=== PATIENT | female | born 1950 | race Two or more races ===

== ENCOUNTER 2024-07-01 07:54 | Outpatient (OUT) | payer MEDICARE, SELFPAY ==
--- NOTE | 2024-07-01 08:40 | ECG_ITS ---
[facility] Test Date: 2024-07-01 Pat Name: ARLYN PALAFOX Department: Room: - Gender: Female [employer]ic: : [id number] Requested By: LA DARLING Order Number: [id number] Reading MD: HOLLIS RAY Measurements Intervals [place] Rate: 69 P: 71 OH: 170 QRS: -7 QRSD: 87 T: 78 QT: 387 QTc: 417 Interpretive Statements SINUS RHYTHM NONSPECIFIC T-WAVE ABNORMALITY ST/T wave changes, can't exclude anteroseptal ischemia No previous ECG available for comparison Electronically Signed On 07-01-2024 23:06:51 EDT by HOLLIS RAY
[2024-07-01 08:54] LABS: Basophils Absolute Auto 0.1 10^3/uL (0.0-0.1); Basophils Percent Auto 0.9 % (0.2-2.0); Eosinophils Absolute Auto 0.2 10^3/uL (0.0-0.7); Eosinophils Percent Auto 2.2 % (0.9-7.0); Hematocrit 37.3 % (36.0-48.0); Hemoglobin 12.1 g/dL (12.0-16.0); Immature Granulocytes Pct Auto 1.1 % (0.0-0.5); Lymphocytes Absolute Auto 3.3 10^3/uL (1.2-3.8); Lymphocytes Percent Auto 34.7 % (20.5-60.0); Mean Corpuscular HGB Conc 32.4 g/dL (29.9-35.2); Mean Corpuscular Hemoglobin 29.9 pg (26.7-34.0); Mean Corpuscular Volume 92.1 fL (81.0-99.0); Mean Platelet Volume 10.6 fL (9.5-13.5); Monocytes Absolute Auto 0.8 10^3/uL (0.3-0.8); Neutrophils Percent Auto 53.1 % (43.0-75.0); Platelet Count 326 10^3/uL (150-450); Red Blood Count 4.05 10^6/uL (4.20-5.40); Red Cell Distribution Width 13.2 % (11.0-15.0); White Blood Count 9.5 10^3/uL (4.0-11.0)
[2024-07-01 10:30] LABS: Anion Gap 15.9; Calcium 8.9 mg/dL (8.5-10.1); Carbon Dioxide 24.2 mmol/L (21.0-32.0); Chloride 102 mmol/L (98-107); Estimated GFR (African America >60 (>=60); Estimated GFR (Non-African Ame 54 (>=60); Glucose 94 mg/dL (74-106); Potassium 4.1 mmol/L (3.5-5.1); Sodium 138 mmol/L (136-145)
== END 2024-07-01 07:55 | disposition home or self-care (01) ==
LOC: PST 07:57
PROVIDERS: PCP Family Medicine; Visit Provider Obstetrics & Gynecology
DX: Z01.810 Encounter for preprocedural cardiovascular examination (principal); Z01.812 Encounter for preprocedural laboratory examination; R93.89 Abnormal findings on diagnostic imaging of other specified body structures; N95.0 Postmenopausal bleeding
CPT/HCPCS: 80048; 85025; 93005

== ENCOUNTER 2024-07-05 08:02 | Day surgery (SDC) | payer MEDICARE, SELFPAY ==
[2024-07-01 08:43] VITALS: BP 122/75; PULSE 73; TEMP 36.4; O2SAT 100; BMI 26.7
[2024-07-05 08:13] VITALS: BP 150/80; PULSE 82; TEMP 36; O2SAT 100; BMI 26.1
--- OUTSIDE RECORDS SUMMARY | 2024-07-05 08:18 | XMS_ITS | CCD ---
Author Organization [facility] Care Team Providers Care Psychiatric Nurse Practitioner Name Role Phone Truman Arias Admitting Unavailable Truman Arias Attending Unavailable Edita Aguilar Primary Care Unavailable Maryanne Hatchzabeth A Referring Unavailable Ediat Aguilar MD Primary Care Provider Edita Aguilar MD Unavailable SAMEERA, ARIELLE A Referring Unavailable EDITA AGUILAR Primary Care Unavailable SAMEERA, ARIELLE A Referring Unavailable LAUREN [facility] Care Unavailable EDITA AGUILAR Attending Unavailable PUMP, DENYS Attending Unavailable LAUREN, EDITA Kay Attending Unavailable SAMEERA, ARIELLE A Referring Unavailable SAMEERA, ARIELLE A Attending Unavailable SAMEERA, ARIELLE A Attending Unavailable SAMEERA, ARIELLE A Referring Unavailable SAMEERA, ARIELLE A Referring Unavailable SAMEERA, ARIELLE A Referring Unavailable TIFFANY PEREZ Attending Unavailable SAMEERA, ARIELLE A Attending Unavailable SAMEERA, ARIELLE A Referring Unavailable ROSIE LYLE Attending Unavailable TIFFANY PEREZ Attending Unavailable TIFFANY PEREZ Referring Unavailable TIFFANY PEREZ Referring Unavailable LA DARLING Attending Unavailable SAPPHIRE FLORES Referring Unavailable SAMEERA, ARIELLE A Attending Unavailable Allergies Allergy Classification Reported Allergen(s) Allergy Type Date of Onset Reaction(s) Facility (1 source) Allopurinol Drug Allergy 07-19-2023 Other [facility] Work Phone: Medications Current Medications Medication Drug Class(es) Dates Sig (Normalized) Sig (Original) amitriptyline hydrochloride 10 mg oral tablet (4 sources) Tricyclic Antidepressant Start: 04-27-2021 take 1 tablet by mouth at bedtime amitriptyline (Elavil) 10 MG tablet Take 10 mg by mouth at bedtime. 0 05/02/2023 Active Start: 04-27-2021 take 1 tablet by vee th once daily Amitriptyline Active 25 MG PO Daily April 27, 2021 12:00am in addition to 10mg tablet amLODIPine 5 mg oral tablet (1 source) Dihydropyridine Calcium Channel Vibha Start: 12-19-2023 End: 12-18-2024 take 1 tablet by mouth in the morning amLODIPine (Norvasc) 5 MG tablet Indications: Primary hypertension (CMS/HCC) Take 1 tablet (5 mg) by mouth in the morning. 30 tablet 11 12/19/2023 12/18/2024 Active aspirin 81 mg delayed release oral tablet (2 sources) Platelet Aggregation Inhibitor, Nonsteroidal Anti-inflammatory Drug Start: 04-27-2021 Aspirin Active 81 MG PO Q48H April 27, 2021 12:00am ASPIRIN 81 MG ch ewable tablet Chew 81 mg every other day. 0 Active atorvastatin 10 mg oral tablet (1 source) HMG-CoA Reductase Inhibitor Start: 04-27-2021 take 10 mg by mouth once daily Atorvastatin Active 10 MG PO Daily April 27, 2021 12:00am celecoxib 200 mg oral capsule (2 sources) Nonsteroidal Anti-inflammatory Drug Start: 05-09-2023 take 1 capsule by mouth every other day celecoxib (CeleBREX) 200 MG capsule Take 200 mg by mouth every other day. 0 05/09/2023 Active Start: 04-27-2021 take 1 capsule by mo uth once daily Celecoxib (Celebrex) 200 mg Capsule Active 200 MG PO Daily April 27, 2021 12:00am cholecalciferol 0.05 mg oral capsule (2 sources) Vitamin D Start: 04-27-2021 take 2 tablets by mouth once daily Cholecalciferol (Vitamin D3) (Vitamin D3) 50 mcg (2,000 unit) Capsule Active 50 MCG PO Daily April 27, 2021 12:00am 2 tabs daily cholecalciferol (Vitamin D-3) 50 MCG (2000 UT) tablet every 12 (twelve) hours. 0 Active cholestyramine resin 4000 mg powder for oral suspension (1 source) Bile Acid Sequestrant take 1 dose by mouth once daily cholestyramine (Questran) 4 g packet Take 1 packet by mouth 1 (one) time each day 0 Active chondroitin sulfates 400 mg / glucosamine sulfate 500 mg oral tablet (1 source) take 1 tablet by mouth once daily glucosamine-chondroitin 500-400 MG tablet Take 1 tablet by mouth 1 (one) time each day. 0 Active febuxostat 40 mg oral tablet (1 source) Xanthine Oxidase Inhibitor febuxostat (Uloric) 40 MG tablet 1 (one) time each day at the same time. 0 Active hydroCHLOROthiazide 25 mg oral tablet (1 source) Thiazide Diuretic Start: 2020 take 25 mg by mouth once daily Hydrochlorothiazide Active 25 MG PO Daily April 27, 2021 12:00am levothyroxine sodium 0.125 mg oral tablet (2 sources) l-Thyroxine Start: 2023 End: 2024 take 1 tablet by mouth before mealtime levothyroxine (Synthroid) 125 MCG tablet Indications: Postoperative hypothyroidism (CMS/HCC) Take 1 tablet (125 mcg) by mouth in the morning. Take before meals. 90 tablet 3 12/21/2023 12/20/2024 Active Start: 04-27-2021 take 125 ug by mouth once daily Levothyroxine Active 125 MCG PO Daily April 27, 2021 12:00am lisinopril 40 mg oral tablet (2 sources) Angiotensin Converting Enzyme Inhibitor Start: 10-25-2023 lisinopril 40 MG tablet Indications: Essential hypertension (CMS/HCC) TAKE 1 TABLET DAILY 90 tablet 3 10/25/2023 Active Start: 04-27-2021 take 40 mg by mouth once daily Lisinopril Active 40 MG PO Daily April 27, 2021 12:00am raloxifene hydrochloride 60 mg oral tablet (2 sources) Estrogen Agonist/Antagonist Start: 04-27-2021 take 1 tablet by mouth once daily Raloxifene (Evista) 60 mg Tablet Active 60 MG PO Daily April 27, 2021 12:00am Problems Active Problems Problem Classification Problem Date Documented Date Episodic/Chronic Chronic kidney disease (1 source) Chronic kidney disease stage 3A ; Translations: [Stage 3a chronic kidney disease (HCC)] Onset: 04-14-2021 09-08-2023 Chronic Complications of surgical procedures or medical care (1 source) Postoperative hypothyroidism; Translations: [Postprocedural hypothyroidism] Onset: 01-05-2016 09-08-2023 Chronic Disorders of lipid metabolism (1 source) Hyperlipidemia; Translations: [Hyperlipidemia, unspecified] Onset: 11-18-2016 09-08-2023 Chronic Diverticulosis and diverticulitis (2 sources) Diverticulosis of colon; Translations: [Diverticulosis of large intestine without perforation or abscess without bleeding] Onset: 01-05-2016 09-08-2023 Chronic Esophageal disorders (1 source) Gastroesophageal reflux disease; Translations: [Gastro-esophageal reflux disease without esophagitis] Onset: 01-05-2016 09-08-2023 Chronic Essential hypertension (1 source) Essential hypertension; Translations: [Essential (primary) hypertension] Onset: 01-05-2016 09-08-2023 Chronic Gout and other crystal arthropathies (1 source) Gout; Translations: [Gout, unspecified] Onset: 08-26-2021 09-08-2023 Chronic Noninfectious gastroenteritis (1 source) Lymphocytic colitis; Translations: [Other and unspecified noninfectious gastroenteritis and colitis] Onset: 10-24-2023 10-24-2023 Chronic Nutritional deficiencies (1 source) Vitamin D deficiency; Translations: [Vitamin D deficiency, unspecified] Onset: 08-26-2021 09-08-2023 Chronic Osteoarthritis (3 sources) Arthritis of left foot; Translations: [Primary osteoarthritis, left ankle and foot] Onset: 07-16-2015 09-08-2023 Chronic Other liver diseases (1 source) Steatosis of liver; Translations: [Fatty (change of) liver, not elsewhere classified] Onset: 11-19-2018 09-08-2023 Chronic Other nervous system disorders (1 source) Neuropathy; Translations: [Hereditary and idiopathic neuropathy, unspecified] Onset: 09-08-2023 09-08-2023 Chronic Other non-traumatic joint disorders (1 source) Bone spur of vertebra; Translations: [Osteophyte, vertebrae] Onset: 09-08-2023 09-08-2023 Chronic Other nutritional; endocrine; and metabolic disorders (1 source) Disorder of carbohydrate metabolism; Translations: [Other disorders of intestinal carbohydrate absorption] Onset: 09-08-2023 09-08-2023 Chronic Spondylosis; intervertebral disc disorders; other back problems (1 source) Sacroiliitis, not elsewhere classified; Translations: [Sacroiliitis, not elsewhere classified] Onset: 05-01-2024 Chronic Thyroid disorders (1 source) Hypothyroidism; Translations: [Hypothyroidism, unspecified] Onset: 01-05-2016 09-08-2023 Chronic Unclassified (1 source) Low back pain, unspecified; Translations: [Low back pain, unspecified] Onset: 05-01-2024 Past or Other Problems Problem Classification Problem Date Documented Da te Episodic/Chronic Abdominal hernia (1 source) Hiatal hernia; Translations: [Diaphragmatic hernia without obstruction or gangrene] Onset: 01-05-2016 09-08-2023 Episodic Diabetes mellitus without complication (1 source) Impaired fasting glycemia; Translations: [Impaired fasting glucose] Onset: 01-05-2016 09-08-2023 Episodic Hemorrhoids (1 source) Internal hemorrhoids; Translations: [Other hemorrhoids] Onset: 07-03-2019 09-08-2023 Episodic Mood disorders (1 source) Mood disorders Onset: 09-25-2023 09-25-2023 Other acquired deformities (1 source) Deformity of cervical vertebra; Translations: [Deforming dorsopathy, unspecified] Onset: 04-20-2021 09-08-2023 Episodic Other and unspecified benign neoplasm (1 source) Polyp of ascending colon; Translations: [Polyp of colon] Onset: 06-28-2019 09-08-2023 Episodic Other bone disease and musculoskeletal deformities (1 source) Osteopenia; Translations: [Other specified disorders of bone density and structure, unspecified site] Onset: 01-05-2016 09-08-2023 Episodic Other connective tissue disease (1 source) Fibromyalgia; Translations: [Fibromyalgia] Onset: 01-05-2016 09-08-2023 Episodic Other lower respiratory disease (1 source) Nodule of lung; Translations: [Solitary pulmonary nodule] Onset: 11-16-2018 09-08-2023 Episodic Other nutritional; endocrine; and metabolic disorders (1 source) Body mass index 25-29 - overweight; Translations: [Overweight] Onset: 09-08-2023 09-08-2023 Episodic Other screening for suspected conditions (not mental disorders or infectious disease) (4 sources) Protein level - finding; Translations: [Other specified abnormal findings of blood chemistry] Onset: 04-14-2021 04-29-2021 Episodic Residual codes; unclassified (1 source) Insomnia; Translations: [Insomnia, unspecified] Onset: 01-05-2016 09-08-2023 Episodic Spondylosis; intervertebral disc disorders; other back problems (2 sources) Stenosis of intervertebral foramina; Translations: [Spinal stenosis, site unspecified] Onset: 04-20-2021 09-08-2023 Episodic Results Test Name Value Interpretation Reference Range Facility MR SHOULDER RIGHT WO IV CONT Nicole 06-25-2024 MR SHOULDER RIGHT WO IV CONTRAST EXAMINATION: MR SHOULDER RIGHT WO IV CONTRAST HISTORY: Right shoulder pain. Lateral pain with limited range of motion. No recent injury. Denies prior right shoulder surgery. TECHNIQUE: Routine non-contrast MRI of the shoulder right COMPARISON: Radiographs 04/30/2024. RESULT: Limitations from motion. Rotator Cuff Tendons: Mild to moderate tendinosis involving supraspinatus, infraspinatus, and subscapularis, without distinct full-thickness tear within limits of motion. Teres minor appears intact. Long Head Biceps Tendon: Appears intact with appropriate location. Muscle: Muscle bulk and signal intensity are within normal limits. Labrum: Diffuse fraying/tearing. Bones and Marrow: No evidence of fracture or bone marrow replacing process. Glenohumeral Joint: Diffuse full-thickness chondral loss with bulky osteophytes, small to moderate joint effusion. Multiple joint bodies especially within the region of the subscapularis recess. Possible joint body in the biceps tendon sheath versus prominent osteophyte. Acromioclavicular Joint: Mild to moderate degenerative changes. Other: Mild subacromial-subdeltoid bursal thickening/fluid. IMPRESSION: Rotator cuff tendinosis, without evidence for full-thickness tear. Osteoarthritis, advanced involving the glenohumeral joint with multiple joint bodies. ELECTRONICALLY SIGNED BY: Maury Espinoza MD Normal Not Available US PELVIS TRANSVAGINALon US PELVIS TRANSVAGINAL Exam: US PELVIC AND ENDOVAGINAL Clinical History: Post menopausal bleeding Reference Exam: No comparison FINDINGS: Real-time ultrasonographic evaluation with color-flow Doppler imaging and Doppler spectral waveform analysis provided. The uterus is present. It measures 5.9 x 3.7 x 3.6 cm. The endometrium measures 1.7 cm. The ovaries are not identified. Myometrial echotexture is unremarkable. The pelvis contains no free fluid. IMPRESSION: Abnormal thickening of the endometrial echo complex. Neoplasia not excluded. Dictated on: 06/06/2024 12:12 PM This report has been electronically signed and approved by the interpreting Radiologist. Electronically Signed Mike Engle M.D. 2024-06-06 12:23:22 Normal Not Available US UPPER EXTREMITY NON-VASC RIGHTon 04-30-2024 US UPPER EXTREMITY NON-VASC RIGHT FINDINGS: No sonographic abnormality corresponds to the palpable lump. No aggressive mass or vascular structure. IMPRESSION: No sonographic abnormality. If a palpable lump is clinically present, sonographic findings can be consistent with a nonaggressive lipoma. TRANSCRIBED BY: ELECTRONICALLY SIGNED BY: Yuniel Ochoa MD Normal Not Available XR LUMBAR SPINE 4+ VIEWS WIT H FLEXION EXTENSIONon 04-30-2024 XR LUMBAR SPINE 4+ VIEWS WITH FLEXION EXTENSION FINDINGS: Minimal thoracolumbar scoliosis is present. Vertebral body heights are normal. Moderate to severe asymmetric disc space loss, greatest involvement L1-2, L5-S1. Sclerosis involves posterior elements of the mid and distal lumbar spine; however, no acute spondylolysis is seen. SI joints are normal. No acute fracture is identified. Soft tissues are relatively unremarkable. Flexion and extension: T12-L1: Normal alignment, no change L1-2: Several mm retrolisthesis, no change L2-3 - L3-4: Normal alignment, no change L4-5: Several mm anterolisthesis, no change L5-S1: Normal alignment, no change IMPRESSION: 1. Thoracolumbar, lumbosacral arthritis 2. Multilevel spondylolisthesis, no motion with flexion and extension TRANSCRIBED BY: ELECTRONICALLY SIGNED BY: Yuniel Ochoa MD Normal Not Available XR SHOULDER 2+ VIEWS RIGHTon 04-30-2024 XR SHOULDER 2+ VIEWS RIGHT FINDINGS: Increased acromiohumeral distance consistent with joint effusion. Moderate osteophyte formation involves the AC joint. No fracture or dislocation is seen. Mild glenohumeral joint space loss, moderate medial humeral head osteophyte formation. 1 cm upper lobe non-calcified nodule. IMPRESSION: 1. Right upper lobe non-calcified 1 cm nodule. Recommend chest CT 2. AC joint arthritis, no separation or fracture, probable joint effusion which may represent rotator cuff tendon pathology TRANSCRIBED BY: ELECTRONICALLY SIGNED BY: Yuniel Ochoa MD Normal Not Available CBC (INCLUDES DIFF/PLT)on Basophils (Bld) [#/Vol] 0.077 10*3/uL Normal 0-200 [facility] Comment on above: Performed By: #### 9 , 63, [id number] #### [facility] [place] [address] [employer] Social Worker: Zbigniew Jack MD Basophils/100 WBC (Bld) 0.9 % Normal [facility] Comment on above: Performed By: #### 9 , 63, [id number] #### [facility] [place] [address] [employer] Social Worker: Zbigniew Jack MD Eosinophils (Bld) [#/Vol] 0.206 10*3/uL Normal 15-500 [facility] Comment on above: Performed By: #### 9 , 6398, 20901 #### [facility] [place] [address] [employer] Social Worker: Zbigniew Jack MD Eosinophils/100 WBC (Bld) 2.4 % Normal [facility] Comment on above: Performed By: #### 9 , 6398, 05308 #### [facility] [place] [address] [employer] Social Worker: Zbigniew Jack MD Erythrocyte distribution width (RBC) [Ratio] 13.4 % Normal 11.0-15.0 [facility] Comment on above: Performed By: #### 07 18, 63, 05037 #### [facility] [place] [address] [employer] Social Worker: Zbigniew Jack MD Hematocrit (Bld) [Volume fraction] 38.7 % Normal 35.0-45.0 [facility] Comment on above: Performed By: #### 9 , 63, 21038 #### [facility] [place] [address] [employer] Social Worker: Zbigniew Jack MD Hemoglobin (Bld) [Mass/Vol] 12.6 g/dL Normal 11.7-15.5 [facility] Comment on above: Performed By: #### 9 , 63, 62814 #### [facility] [place] [address] [employer] Social Worker: Zbigniew Jack MD Lymphocytes (Bld) [#/Vol] 3.56 10*3/uL Normal 850-3900 [facility] Comment on above: Performed By: #### 9 , 63, 81918 #### [facility] [place] [address] [employer] Social Worker: Zbigniew Jack MD Lymphocytes/100 WBC (Bld) 41.4 % Normal [facility] Comment on above: Performed By: #### 9 , 63, 45677 #### [facility] [place] [address] [employer] Social Worker: Zbigniew Jack MD MCH (RBC) [Entitic mass] 30.1 pg Normal 27.0-33.0 [facility] Comment on above: Performed By: #### 9 , 63, 34024 #### [facility] [place] [address] [employer] Social Worker: Zbigniew Jack MD MCHC (RBC) [Mass/Vol] 32.6 g/dL Normal 32.0-36.0 [facility] Comment on above: Performed By: #### 9 , 63, 11026 #### [facility] [place] [address] [employer] Social Worker: Zbigniew Jack MD MCV (RBC) [Entitic vol] 92.4 fL Normal 80.0-100.0 [facility] Comment on above: Performed By: #### 9 , 63, 00758 #### [facility] [place] [address] [employer] Social Worker: Zbigniew Jack MD Monocytes (Bld) [#/Vol] 0.482 10*3/uL Normal 200-950 [facility] Comment on above: Performed By: #### 9 , 63, 96197 #### [facility] [place] [address] [employer] Social Worker: Zbigniew Jack MD Monocytes/100 WBC (Bld) 5.6 % Normal [facility] Comment on above: Performed By: #### 9 , 63, 20909 #### [facility] [place] [address] [employer] Social Worker: Zbigniew Jack MD Neutrophils (Bld) [#/Vol] 4.274 10*3/uL Normal 2198-6755 [facility] Comment on above: Performed By: #### 9 , 63, 65202 #### [facility] [place] [address] [employer] Social Worker: Zbigniew Jack MD Neutrophils/100 WBC (Bld) 49.7 % Normal [facility] Comment on above: Performed By: #### 9 , 63, 01142 #### [facility] [place] [address] [employer] Social Worker: Zbigniew Jack MD Platelet mean volume (Bld) [Entitic vol] 11.1 fL Normal 7.5-12.5 [facility] Comment on above: Performed By: #### 9 , 63, 96760 #### [facility] [place] [address] [employer] Social Worker: Zbigniew Jack MD Platelets (Bld) [#/Vol] 346 10*3/uL Normal 140-400 [facility] Comment on above: Performed By: #### 9 , 63, 70804 #### [facility] [place] [address] [employer] Social Worker: Zbigniew Jack MD RBC (Bld) [#/Vol] 4.19 10*6/uL Normal 3.80-5.10 [facility] Comment on above: Performed By: #### 9 , 63, 01713 #### [facility] [place] [address] [employer] Social Worker: Zbigniew Jack MD WBC (Bld) [#/Vol] 8.6 10*3/uL Normal 3.8-10.8 [facility] Comment on above: Performed By: #### 9 , 6399, 42268 #### [facility] [place] [address] [employer] Social Worker: Zbigniew Jack MD [facility] 03-14-2024 Albumin [Mass/Vol] 4.5 g/dL Normal 3.6-5.1 [facility] Comment on above: Performed By: #### 9 , 6399, 42819 #### [facility] [place] [address] [employer] Social Worker: Zbigniew Jack MD Albumin/Globulin [Mass ratio] 2.4 {ratio} Normal 1.0-2.5 [facility] Comment on above: Performed By: #### 9 , 63, 08851 #### [facility] [place] [address] [employer] Social Worker: Zbigniew Jack MD ALP [Catalytic activity/Vol] 59 U/L Normal 37-153 [facility] Comment on above: Performed By: #### 9 , 63, 64480 #### [facility] [place] [address] [employer] Social Worker: Zbigniew Jack MD ALT [Catalytic activity/Vol] 29 U/L Normal 6-29 [facility] Comment on above: Performed By: #### 9 , 63, 34964 #### [facility] [place] [address] [employer] Social Worker: Zbigniew Jack MD AST [Catalytic activity/Vol] 47 U/L High 10-35 [facility] Comment on above: Performed By: #### 9 , 63, 90237 #### [facility] [place] [address] [employer] Social Worker: Zbigniew Jack MD Bilirubin [Mass/Vol] 0.6 mg/dL Normal 0.2-1.2 [facility] Comment on above: Performed By: #### 9 , 63, 12123 #### [facility] [place] [address] [employer] Social Worker: Zbigniew Jack MD BUN/CREATININE RATIO SEE NOTE: Normal 6-22 [facility] Comment on above: Result Comment: Not Reported: BUN and Creatinine are within reference range. Performed By: #### 9 , 63, 92857 #### [facility] [place] [address] [employer] Social Worker: Zbigniew Jack MD Calcium [Mass/Vol] 9.2 mg/dL Normal 8.6-10.4 [facility] Comment on above: Performed By: #### 9 , 6398, 67598 #### [facility] [place] [address] [employer] Social Worker: Zbigniew Jack MD Chloride [Moles/Vol] 105 mmol/L Normal 98-110 [facility] Comment on above: Performed By: #### 07 18, 63, 14578 #### [facility] [place] [address] [employer] Social Worker: Zbigniew Jack MD CO2 [Moles/Vol] 23 mmol/L Normal 20-32 [facility] Comment on above: Performed By: #### 9 , 63, 73607 #### [facility] [place] [address] [employer] Social Worker: Zbigniew Jack MD Creatinine [Mass/Vol] 0.92 mg/dL Normal 0.60-1.00 [facility] Comment on above: Performed By: #### 9 , 63, 55898 #### [facility] [place] [address] [employer] Social Worker: Zbigniew Jack MD GFR/1.73 sq M.predicted among non-blacks MDRD (S/P/Bld) [Vol rate/Area] 65 mL/min/{1.73_m2} Normal > OR = 60 [facility] Comment on above: Performed By: #### 9 , 63, 32024 #### [facility] [place] [address] [employer] Social Worker: Zbigniew Jack MD Globulin (S) [Mass/Vol] 1.9 g/dL Normal 1.9-3.7 [facility] Comment on above: Performed By: #### 9 , 63, 97559 #### [facility] [place] [address] [employer] Social Worker: Zbigniew Jack MD Glucose [Mass/Vol] 102 mg/dL High 65-99 [facility] Comment on above: Result Comment: Fasting reference interval For someone without known diabetes, a glucose value between 100 and 125 mg/dL is consistent with prediabetes and should be confirmed with a follow-up test. Performed By: #### 9 , 63, 86659 #### [facility] [place] [address] [employer] Social Worker: Zbigniew Jack MD Potassium [Moles/Vol] 4.2 mmol/L Normal 3.5-5.3 [facility] Comment on above: Performed By: #### 9 , 6398, 22809 #### [facility] [place] [address] [employer] Social Worker: Zbigniew Jack MD Protein [Mass/Vol] 6.4 g/dL Normal 6.1-8.1 [facility] Comment on above: Performed By: #### 9 , 63, 63505 #### [facility] [place] [address] [employer] Social Worker: Zbigniew Jack MD Sodium [Moles/Vol] 141 mmol/L Normal 135-146 [facility] Comment on above: Performed By: #### 9 , 63, 08648 #### [facility] [place] [address] [employer] Social Worker: Zbigniew Jack MD Urea nitrogen [Mass/Vol] 23 mg/dL Normal 7-25 [facility] Comment on above: Performed By: #### 9 , 8017, 96007 #### [facility] [address] [place] [address] [employer] Social Worker: Zbigniew Jack MD URIC ACIDon 03-14-2024 Urate [Mass/Vol] 6.7 mg/dL Normal 2.5-7.0 [facility] Comment on above: Result Comment: Ther apeutic target for gout patients: <6.0 mg/dL Performed By: #### 9 , 2438, 42921 #### [facility] [address] [place] [address] [employer] Social Worker: Zbigniew Jack MD BI MAMMOGRAM SCREENING TOMOS YNTHESIS BILATERALon 10-12-2023 BI MAMMOGRAM SCREENING TOMOSYNTHESIS BILATERAL This is a summary report. The complete report is available in the patient's medical record. If you cannot access the medical record, please contact the sending organization for a detailed fax or copy. EXAMINATION: BI MAMMOGRAM SCREENING TOMOSYNTHESIS BILATERAL CLINICAL HISTORY: screening COMPARISON: September 28, 2021. RESULT: Digital mammography and 3D tomosynthesis of bilateral breasts was performed. The breasts are almost entirely fatty. Overall appearance is stable. Typically benign calcifications. There is no suspicious mass, asymmetry, architectural distortion, or calcification. IMPRESSION: BIRADS 2 - Benign Follow-up: Routine Screening Mamm . Board Certified Radiologists. Accredited by the ACR and FDA. MAMMOGRAPHY IS VERY IMPORTANT TO YOUR HEALTH. THE [employer] GUIDELINES RECOMMEND THAT WOMEN 40 YEARS OF AGE AND OLDER SHOULD HAVE A MAMMOGRAM EVERY YEAR. A REMINDER LETTER WILL BE SENT AT THE APPROPRIATE TIME. THIS FACILITY UTILIZES A REMINDER SYSTEM TO ENSURE ALL PATIENTS RECEIVE REMINDER NOTIFICATIONS AT THE APPROPRIATE TIME BASED ON THE RECOMMENDATIONS OF THIS EXAM. THIS INCLUDES REMINDERS FOR ROUTINE SCREENING MAMMOGRAMS, DIAGNOSTIC MAMMOGRAMS IN WHICH THE PATIENT IS ASKED TO RETURN FOR ADDITIONAL VIEWS, OR OTHER BREAST IMAGING INTERVENTIONS WHEN APPROPRIATE. THE PATIENT WILL BE PLACED IN THE APPROPRIATE REMINDER SYSTEM INCLUDING A REMINDER AT THE APPROPRIATE TIME FOR ANY PENDING ADDITIONAL VIEWS. TRANSCRIBED BY: ELECTRONICALLY SIGNED BY: Yuniel Ochoa MD Normal Not Available CBC (INCLUDES DIFF/PLT)on Basophils (Bld) [#/Vol] 0.08 10*3/uL Normal 0-200 [facility] Comment on above: Performed By: #### 9 , 63, 49103 #### [facility] of [address], [address] [place] [address] School Social Worker: Zbigniew Jack MD Basophils/100 WBC (Bld) 0.9 % Normal [facility] Comment on above: Performed By: #### 9 , 63, 94292 #### [facility] of [address], [address] [place] [address] School Social Worker: Zbigniew Jack MD Eosinophils (Bld) [#/Vol] 0.196 10*3/uL Normal 15-500 [facility] Comment on above: Performed By: #### 9 , 6398, 62947 #### [facility] of [place] [address] School Social Worker: Zbigniew Jack MD Eosinophils/100 WBC (Bld) 2.2 % Normal [facility] Comment on above: Performed By: #### 07 18, 6398, 38586 #### [facility] of [place] [address] School Social Worker: Zbigniew Jack MD Erythrocyte distribution width (RBC) [Ratio] 12.8 % Normal 11.0-15.0 [facility] Comment on above: Performed By: #### 9 , 63, 55430 #### [facility] of [place] [address] School Social Worker: Zbigniew Jack MD Hematocrit (Bld) [Volume fraction] 38.7 % Normal 35.0-45.0 [facility] Comment on above: Performed By: #### 9 , 63, 31625 #### [facility] of [place] [address] School Social Worker: Zbigniew Jack MD Hemoglobin (Bld) [Mass/Vol] 12.9 g/dL Normal 11.7-15.5 [facility] Comment on above: Performed By: #### 9 , 63, 00478 #### [facility] of [address], [address] [place], [place] [address] School Social Worker: Zbigniew Jack MD Lymphocytes (Bld) [#/Vol] 3.284 10*3/uL Normal 850-3900 [facility] Comment on above: Performed By: #### 9 , 63, 56810 #### [facility] of [place] [address] School Social Worker: Zbigniew Jack MD Lymphocytes/100 WBC (Bld) 36.9 % Normal [facility] Comment on above: Performed By: #### 9 , 63, 03351 #### [facility] of [place] [address] School Social Worker: Zbigniew Jack MD MCH (RBC) [Entitic mass] 29.9 pg Normal 27.0-33.0 [facility] Comment on above: Performed By: #### 9 , 63, 76513 #### [facility] of [place] [address] School Social Worker: Zbigniew Jack MD MCHC (RBC) [Mass/Vol] 33.3 g/dL Normal 32.0-36.0 [facility] Comment on above: Performed By: #### 9 , 63, 79198 #### [facility] of [place] [address] School Social Worker: Zbigniew Jack MD MCV (RBC) [Entitic vol] 89.8 fL Normal 80.0-100.0 [facility] Comment on above: Performed By: #### 9 , 63, 53658 #### [facility] of [place] [address] School Social Worker: Zbigniew Jack MD Monocytes (Bld) [#/Vol] 0.587 10*3/uL Normal 200-950 [facility] Comment on above: Performed By: #### 9 , 63, 42798 #### [facility] of [place] [address] School Social Worker: Zbigniew Jack MD Monocytes/100 WBC (Bld) 6.6 % Normal [facility] Comment on above: Performed By: #### 9 , 63, 79503 #### [facility] of [place] [address] School Social Worker: Zbigniew Jack MD Neutrophils (Bld) [#/Vol] 4.753 10*3/uL Normal 2987-0967 [facility] Comment on above: Performed By: #### 9 , 63, 02821 #### [facility] of [place] [address] School Social Worker: Zbigniew Jack MD Neutrophils/100 WBC (Bld) 53.4 % Normal [facility] Comment on above: Performed By: #### 9 , 63, 31058 #### [facility] of [place] [address] School Social Worker: Zbigniew Jack MD Platelet mean volume (Bld) [Entitic vol] 11.4 fL Normal 7.5-12.5 [facility] Comment on above: Performed By: #### 9 , 63, 83968 #### [facility] of [place] [address] School Social Worker: Zbigniew Jack MD Platelets (Bld) [#/Vol] 347 10*3/uL Normal 140-400 [facility] Comment on above: Performed By: #### 9 , 63, 28083 #### [facility] of [place] [address] School Social Worker: Zbigniew Jack MD RBC (Bld) [#/Vol] 4.31 10*6/uL Normal 3.80-5.10 [facility] Comment on above: Performed By: #### 9 , 63, 16856 #### [facility] of [place] [address] School Social Worker: Zbigniew Jack MD WBC (Bld) [#/Vol] 8.9 10*3/uL Normal 3.8-10.8 [facility] Comment on above: Performed By: #### 9 , 63, 88634 #### [facility] of [address], [address] [place] [address] School Social Worker: Zbigniew Jack MD [facility] 03-25-2023 Albumin [Mass/Vol] 4.6 g/dL Normal 3.6-5.1 [facility] Comment on above: Performed By: #### 9 , 63, 60243 #### [facility] of [address], [address] [place] [address] School Social Worker: Zbigniew Jack MD Albumin/Globulin [Mass ratio] 2.3 {ratio} Normal 1.0-2.5 [facility] Comment on above: Performed By: #### 9 , 63, 53476 #### [facility] of [place] [address] School Social Worker: Zbigniew Jack MD ALP [Catalytic activity/Vol] 65 U/L Normal 37-153 [facility] Comment on above: Performed By: #### 9 , 63, 68266 #### [facility] of [place] [address] School Social Worker: Zbigniew Jack MD ALT [Catalytic activity/Vol] 27 U/L Normal 6-29 [facility] Comment on above: Performed By: #### 9 , 63, 40358 #### [facility] of [place] [address] School Social Worker: Zbigniew Jack MD AST [Catalytic activity/Vol] 45 U/L High 10-35 [facility] Comment on above: Performed By: #### 9 , 63, 13374 #### [facility] of [place] [address] School Social Worker: Zbigniew Jack MD Bilirubin [Mass/Vol] 0.7 mg/dL Normal 0.2-1.2 [facility] Comment on above: Performed By: #### 9 , 63, 46874 #### [facility] of [place] [address] School Social Worker: Zbigniew Jack MD BUN/CREATININE RATIO NOT APPLICABLE Normal 6-22 [facility] Comment on above: Performed By: #### 9 , 6399, 78038 #### [facility] [place] [address] School Social Worker: Zbigniew Jack MD Calcium [Mass/Vol] 9.4 mg/dL Normal 8.6-10.4 [facility] Comment on above: Performed By: #### 9 , 63, 28684 #### [facility] [place] [address] School Social Worker: Zbigniew Jack MD Chloride [Moles/Vol] 101 mmol/L Normal 98-110 [facility] Comment on above: Performed By: #### 9 , 63, 96335 #### [facility] [place] [address] School Social Worker: Zbigniew Jack MD CO2 [Moles/Vol] 25 mmol/L Normal 20-32 [facility] Comment on above: Performed By: #### 9 , 63, 17915 #### [facility] [place] [address] School Social Worker: Zbigniew Jack MD Creatinine [Mass/Vol] 0.96 mg/dL Normal 0.60-1.00 [facility] Comment on above: Performed By: #### 9 , 63, 31992 #### [facility] of [place] [address] School Social Worker: Zbigniew Jack MD GFR/1.73 sq M.predicted among non-blacks MDRD (S/P/Bld) [Vol rate/Area] 62 mL/min/{1.73_m2} Normal > OR = 60 [facility] Comment on above: Result Comment: The eGFR is based on the CKD-EPI 2020 equation. To calculate the new eGFR from a previous Creatinine or Cystatin C result, go to https://www.kidney.org/professionals/ kdoqi/gfr%5Fcalculator Performed By: #### 9 , 63, 97760 #### [facility] of [place] [address] School Social Worker: Zbigniew Jack MD Globulin (S) [Mass/Vol] 2.0 g/dL Normal 1.9-3.7 [facility] Comment on above: Performed By: #### 9 , 63, 74217 #### [facility] of [place] [address] School Social Worker: Zbigniew Jack MD Glucose [Mass/Vol] 98 mg/dL Normal 65-99 [facility] Comment on above: Result Comment: Fasting reference interval Performed By: #### 9 , 63, 58246 #### [facility] [place] [address] School Social Worker: Zbigniew Jack MD Potassium [Moles/Vol] 4.3 mmol/L Normal 3.5-5.3 [facility] Comment on above: Performed By: #### 9 , 63, 94207 #### [facility] [place] [address] School Social Worker: Zbigniew Jack MD Protein [Mass/Vol] 6.6 g/dL Normal 6.1-8.1 [facility] Comment on above: Performed By: #### 9 , 63, 31241 #### [facility] of [place] [address] School Social Worker: Zbigniew Jack MD Sodium [Moles/Vol] 138 mmol/L Normal 135-146 [facility] Comment on above: Performed By: #### 9 , 63, 43700 #### [facility] of [place] [address] School Social Worker: Zbigniew Jack MD Urea nitrogen [Mass/Vol] 19 mg/dL Normal 7-25 [facility] Comment on above: Performed By: #### 9 , 63, 43969 #### [facility] of [place] [address] School Social Worker: Zbigniew Jack MD URIC ACIDon 03-25-2023 Urate [Mass/Vol] 5.8 mg/dL Normal 2.5-7.0 [facility] Comment on above: Result Comment: Ther apeutic target for gout patients: <6.0 mg/dL Performed By: #### 9 05, 6399, 17133 #### [facility] [place] [address] School Social Worker: Zbigniew Jack MD CBC (INCLUDES DIFF/PLT)on Basophils (Bld) [#/Vol] 0.074 10*3/uL Normal 0-200 [facility] Comment on above: Performed By: #### 9 , 12297, 6399 #### [facility] [place] [address] School Social Worker: Zbigniew Jack MD Basophils/100 WBC (Bld) 0.9 % Normal [facility] Comment on above: Performed By: #### 9 , 99064, 6399 #### [facility] [place] [address] School Social Worker: Zbigniew Jack MD Eosinophils (Bld) [#/Vol] 0.139 10*3/uL Normal 15-500 [facility] Comment on above: Performed By: #### 9 , 51607, 6399 #### [facility] [place] [address] School Social Worker: Zbigniew Jack MD Eosinophils/100 WBC (Bld) 1.7 % Normal [facility] Comment on above: Performed By: #### 9 , 58187, 6399 #### [facility] [place] [address] School Social Worker: Zbigniew Jack MD Erythrocyte distribution width (RBC) [Ratio] 13.0 % Normal 11.0-15.0 [facility] Comment on above: Performed By: #### 9 , 96303, 6399 #### [facility] of [place] [address] School Social Worker: Zbigniew Jack MD Hematocrit (Bld) [Volume fraction] 37.8 % Normal 35.0-45.0 [facility] Comment on above: Performed By: #### 9 , 65603, 6399 #### [facility] of [place] [address] School Social Worker: Zbigniew Jack MD Hemoglobin (Bld) [Mass/Vol] 12.5 g/dL Normal 11.7-15.5 [facility] Comment on above: Performed By: #### 9 , , 6399 #### [facility] of [place] [address] School Social Worker: Zbigniew Jack MD Lymphocytes (Bld) [#/Vol] 2.796 10*3/uL Normal 850-3900 [facility] Comment on above: Performed By: #### 9 , , 6399 #### [facility] of [place] [address] School Social Worker: Zbigniew Jack MD Lymphocytes/100 WBC (Bld) 34.1 % Normal [facility] Comment on above: Performed By: #### 9 , 06283, 6399 #### [facility] of [place] [address] School Social Worker: Zbigniew Jack MD MCH (RBC) [Entitic mass] 29.7 pg Normal 27.0-33.0 [facility] Comment on above: Performed By: #### 9 , 97759, 6399 #### [facility] of [place] [address] School Social Worker: Zbigniew Jack MD MCHC (RBC) [Mass/Vol] 33.1 g/dL Normal 32.0-36.0 [facility] Comment on above: Performed By: #### 9 , , 6399 #### [facility] of [place] [address] School Social Worker: Zbigniew Jack MD MCV (RBC) [Entitic vol] 89.8 fL Normal 80.0-100.0 [facility] Comment on above: Performed By: #### 9 , , 6399 #### [facility] of [place] [address] School Social Worker: Zbigniew Jack MD Monocytes (Bld) [#/Vol] 0.508 10*3/uL Normal 200-950 [facility] Comment on above: Performed By: #### 9 , , 99 #### [facility] of [place] [address] School Social Worker: Zbigniew Jack MD Monocytes/100 WBC (Bld) 6.2 % Normal [facility] Comment on above: Performed By: #### 9 , , 6398 #### [facility] of [place] [address] School Social Worker: Zbigniew Jack MD Neutrophils (Bld) [#/Vol] 4.682 10*3/uL Normal 7774-0024 [facility] Comment on above: Performed By: #### 9 , , 6399 #### [facility] of [place] [address] School Social Worker: Zbigniew Jack MD Neutrophils/100 WBC (Bld) 57.1 % Normal [facility] Comment on above: Performed By: #### 9 , , 6399 #### [facility] of [place] [address] School Social Worker: Zbigniew Jack MD Platelet mean volume (Bld) [Entitic vol] 11.7 fL Normal 7.5-12.5 [facility] Comment on above: Performed By: #### 9 , , 6399 #### [facility] of [place] [address] School Social Worker: Zbigniew Jack MD Platelets (Bld) [#/Vol] 340 10*3/uL Normal 140-400 [facility] Comment on above: Performed By: #### 9 , , 6399 #### [facility] of [place] [address] School Social Worker: Zbigniew Jack MD RBC (Bld) [#/Vol] 4.21 10*6/uL Normal 3.80-5.10 [facility] Comment on above: Performed By: #### 9 , , 6399 #### [facility] of [address], [address] [place] [address] School Social Worker: Zbigniew Jack MD WBC (Bld) [#/Vol] 8.2 10*3/uL Normal 3.8-10.8 [facility] Comment on above: Performed By: #### 9 , , 6399 #### [facility] of [place] [address] School Social Worker: Zbigniew Jack MD [facility] 09-30-2022 Albumin [Mass/Vol] 4.6 g/dL Normal 3.6-5.1 [facility] Comment on above: Performed By: #### 9 , 42526, 6399 #### [facility] of [place] [address] School Social Worker: Zbigniew Jack MD Albumin/Globulin [Mass ratio] 2.2 {ratio} Normal 1.0-2.5 [facility] Comment on above: Performed By: #### 9 , 29252, 6399 #### [facility] of [place] [address] School Social Worker: Zbigniew Jack MD ALP [Catalytic activity/Vol] 64 U/L Normal 37-153 [facility] Comment on above: Performed By: #### 9 , 25732, 6399 #### [facility] of [place] [address] School Social Worker: Zbigniew Jack MD ALT [Catalytic activity/Vol] 26 U/L Normal 6-29 [facility] Comment on above: Performed By: #### 9 , , 6399 #### [facility] of [address], [address] [place] [address] School Social Worker: Zbigniew Jack MD AST [Catalytic activity/Vol] 39 U/L High 10-35 [facility] Comment on above: Performed By: #### 9 , , 6399 #### [facility] of [address], [address] [place] [address] School Social Worker: Zbigniew Jack MD Bilirubin [Mass/Vol] 0.6 mg/dL Normal 0.2-1.2 [facility] Comment on above: Performed By: #### 9 , , 6399 #### [facility] of [place] [address] School Social Worker: Zbigniew Jack MD BUN/CREATININE RATIO NOT APPLICABLE Normal 6-22 [facility] Comment on above: Performed By: #### 9 , , 6399 #### [facility] of [place] [address] School Social Worker: Zbigniew Jack MD Calcium [Mass/Vol] 9.6 mg/dL Normal 8.6-10.4 [facility] Comment on above: Performed By: #### 9 , 85068, 6399 #### [facility] of [address], [address] [place] [address] School Social Worker: Zbigniew Jack MD Chloride [Moles/Vol] 105 mmol/L Normal 98-110 [facility] Comment on above: Performed By: #### 9 , 77327, 6399 #### [facility] of [address], [address] [place] [address] School Social Worker: Zbigniew Jack MD CO2 [Moles/Vol] 25 mmol/L Normal 20-32 [facility] Comment on above: Performed By: #### 9 , 49058, 6399 #### [facility] of [place] [address] School Social Worker: Zbigniew Jack MD Creatinine [Mass/Vol] 1.00 mg/dL Normal 0.60-1.00 [facility] Comment on above: Performed By: #### 9 , , 5491 #### [facility] [place] [address] School Social Worker: Zbigniew Jack MD GFR/1.73 sq M.predicted among non-blacks MDRD (S/P/Bld) [Vol rate/Area] 59 mL/min/{1.73_m2} Low > OR = 60 [facility] Comment on above: Result Comment: The eGFR is based on the CKD-EPI 2020 equation. To calculate the new eGFR from a previous Creatinine or Cystatin C result, go to https://www.kidney.org/professionals/ kdoqi/gfr%5Fcalculator Performed By: #### 9 , , 2657 #### [facility] [place] [address] School Social Worker: Zbigniew Jack MD Globulin (S) [Mass/Vol] 2.1 g/dL Normal 1.9-3.7 [facility] Comment on above: Performed By: #### 9 , 78256, 9499 #### [facility] [place] [address] School Social Worker: Zbigniew Jack MD Glucose [Mass/Vol] 94 mg/dL Normal 65-99 [facility] Comment on above: Result Comment: Fasting reference interval Performed By: #### 9 , 35541, 6099 #### [facility] [place] [address] School Social Worker: Zbigniew Jack MD Potassium [Moles/Vol] 4.3 mmol/L Normal 3.5-5.3 [facility] Comment on above: Performed By: #### 9 , 55220, 4300 #### [facility] [place] [address] School Social Worker: Zbigniew Jack MD Protein [Mass/Vol] 6.7 g/dL Normal 6.1-8.1 [facility] Comment on above: Performed By: #### 9 05, 12718, 6399 #### [facility] [address], [address] [place] [address] School Social Worker: Zbigniew Jack MD Sodium [Moles/Vol] 140 mmol/L Normal 135-146 [facility] Comment on above: Performed By: #### 9 05, 20680, 6399 #### [facility] [address], [address] [place] [address] School Social Worker: Zbigniew Jack MD Urea nitrogen [Mass/Vol] 22 mg/dL Normal 7-25 [facility] Comment on above: Performed By: #### 9 05, 03132, 6399 #### [facility] [address], [address] [place] [address] School Social Worker: Zbigniew Jack MD URIC ACIDon 09-30-2022 Urate [Mass/Vol] 5.3 mg/dL Normal 2.5-7.0 [facility] Comment on above: Result Comment: Ther apeutic target for gout patients: <6.0 mg/dL Performed By: #### 9 05, 89349, 6399 #### [facility] [place] [address] School Social Worker: Zbigniew Jack MD SCREENING MAMMOGRAM W/DINA, BILATERAL*on 09-29-2022 SCREENING MAMMOGRAM W/DINA, BILATERAL* COMPARISON: September 28, 2021, November 24, 2020, October 22, 2019, August 29, 2018] TECHNIQUE: 2D and 3D Tomosynthesis of the right and left breasts was performed. FINDINGS: Breast composition demonstrates almost entirely fat. Overall appearance is stable. Typically benign calcifications. No suspicious microcalcifications, asymmetry, architectural distortion, or associated features are present. IMPRESSION: BIRADS 2: Benign mammogram Board Certified Radiologist. Accredited by the ACR and FDA. MAMMOGRAPHY IS VERY IMPORTANT TO YOUR HEALTH. THE CURRENT [employer] GUIDELINES RECOMMENDS ANNUAL MAMMOGRAPHY BEGINNING AT AGE 40 THIS FACILITY USES A REMINDER SYSTEM TO ENSURE ALL PATIENTS RECEIVE REMINDER NOTIFICATIONS AT THE APPROPRIATE TIME BASED ON THE RECOMMENDATIONS OF THIS EXAM. Report reported and signed by Yuniel Ochoa on 09/29/2022 1212 Normal [facility] Sales Service Coordinator US Carotid, Bilateralon 11-1 US Carotid, Bilateral FINDINGS: Right (% stenosis)Left (% stenosis) ICA Peak Systolic Velocity (cm/sec)9986 ICA/CCA Systolic Ratio1.11.0 BILATERAL CAROTID SYSTEMS: Minimal soft and/or echogenic plaque throughout both carotid systems. No significant stenosis is present based on visual inspection or velocity and ratio values. Both vertebral arteries have normal cephalad-directed flow. Estimated range of stenosis*: Minimal, not hemodynamically significant *COMMENT: These estimates represent a median value within a 95% confidence interval range. They represent percent diameter ICA stenosis derived from regression curve analysis using the NASCET method and Doppler ultrasound velocities. Please note with high-grade stenosis (greater than 95%), an actual reduction in velocity will occur. Reference: Yuniel Rogers. carotid ultrasound, in RAD [facility], 39 (3), Mar, 2001. Report reported and signed by Yuniel Ochoa on 09/29/2022 1221 Normal [facility] Sales Service Coordinator CNOVon 11-15-2021 CNOV Office Visit (NENMMN ) ARLYN PALAFOX ([id number]) 1950 F Date Time Provider Department 11/15/21 2:30 PM [facility] your visit today, we recorded the following information about you: Pulse Respiration Blood pressure Weight 90/minute 16/minute 120/65 77.1 kg Height 1.676 m Krissy Caban MD 11/16/2021 8:11 AM Signed [facility] DATE: 11/15/2021 Reason for Evaluation: Consultation requested by Self for an opinion regarding her previous diagnosis of neuropathy. My final recommendations will be communicated back to the requesting physician by way of shared medical record or letter to requesting physician via US mail. HPI: Ms. 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 Previously evaluated here at [facility] in 03/2014 for concerns regarding peripheral neuropathy. Reported onset ~6 years prior (~2007). Numbness and tightness of the feet ascending to the ankles with ~2 years of stinging and burning pain worst at night. Exam at that time consistent with symmetric distal sensory polyneuropathy. Obtained multiple serum studies: SPEP with low lamin and elevated kappa/lambda ratio (3.12). Slightly elevated copper (170) and B6 (180). Normal/negative RF, UPEP, SMITHA, Vitamins B1/12. EMG in 03/2014 Overall unremarkable with exception being absent medial plantar response- read as normal study. QSART 05/2014 Reduced left proximal leg. Normal left forearm, distal leg, and foot. Skin biopsy 05/2014 Reduction in epidermal fiber densities at the distal thigh and distal leg consistent with a moderate to severe small fiber sensory neuropathy appearing length dependent. Management at that time was to increase her amitriptyline to 35 mg QHS. In the interim, she has been diagnosed with gout (at the end of 2018). In retrospect, realizes that she has had symptoms consistent with gout for several years preceding diagnosis. Has been on four different rounds of prednisone since September of 2021 due to gout attacks. With regards to her neuropathy: In 2013, symptoms were limited to essentially the mid and distal foot. Since that time, they have ascended to ~mid-calf bilaterally. Sometimes she feels tingling/pinpricks in the fingers of both hands- intermittent and usually at night. The pain in her feet has worsened. Described as hot /burning all the time with stabbing intermittently. Numbness has worsened, though she is not able to describe exactly how. Has not completely lost feeling- if anything they are frequently more sensitive. Her feet in general feel that they are stiff , and like they are hard to move to an extent. Recently had multiple labs (08/2021) drawn. A1c 6.2 Free T4 2.05, TSH 2.370 Vitamin D 66 She has noticed that her activity is decreasing (I.e. walking the neighborhood) as she knows she will pay for it later that night. Current medications being tried for the patient's symptoms include: - Amitriptyline 35 mg QHS Neurologic ROS Muscle bulk loss? No Muscle pain? No Cramps/Twitching? A lot of cramps in her legs at night. Suggestion of myotonia/difficulty relaxing after contraction? No Fatigable weakness? No Does strength improve after brief exercise? Yes Able to brush hair/teeth without difficulty? No Able to button shirts/use zips? No Clumsiness/dropping grasped objects? No Can you arise from squatted position easily? No, needs something to use as an aid. Able to get out of chair without using arms? Yes Able to walk up steps easily? Yes Use an assistive device to walk? No Significant imbalance with walking? Yes, generally feels off balance. Needs to lean against the pew in front of her if she closes her eyes praying at [employer]. Falls? None Any change in urine color, especially after exertion/physical activity? No The patient denies symptoms suggestive of oculobulbar weakness including diplopia, dysphagia, poor saliva control, dysarthria/dysphonia, impaired mastication, facial weakness/droop. There are no neuromuscular respiratory weakness symptoms, particularly orthopnea>dyspnea. Pseudobulbar affect is absent. The patient does not report symptoms referable to autonomic dysfunction including impaired sweating, excessive mucosal dryness, gastroparetic early satiety, postprandial abdominal bloating, constipation, bowel or bladder dyscontrol, or syncope/presyncope/orth ostatic (more content not included)... Normal [facility] Methylmalonic Acidon 022 Methylmalonic Acid 247 nmol/L Normal 79-376 [facility] Comment on above: Result Comment: This test was developed and its performance characteristics determined by [facility]'s Pawel Hernandez [facility] [place] ([facility]). It has not been cleared or approved by the FDA. [facility] is regulated under CLIA as qualified to perform high complexity testing. This test is used for clinical purposes. It should not be regarded as investigational or for research. Performed By: #### M BOSTON NICOLE, Pari #### [place] [address] [place] [address] Monclnl Protein, Seron 11-15 K/L Ratio, Serum 1.51 Normal 0.26-1.65 [facility] Comment on above: Performed By: #### BOSTON Dumont MA B12 #### [place] [address] Peggs, Free, Serum 11.0 mg/L Normal 3.30-19.40 [facility] Comment on above: Result Comment: Test performed by an immunoturbidimetric assay on Optilite instrument from [facility]. Immunoglobulin free light chain assay results should be interpreted in conjunction with other tests and in correlation with clinical picture. Performed By: #### BOSTON Dumont MA B12 #### [place] [address] Lambda, Free, Serum 7.3 mg/L Normal 5.7-26.3 [facility] Comment on above: Result Comment: Test performed by an immunoturbidimetric assay on Optilite instrument from [facility]. Immunoglobulin free light chain assay results should be interpreted in conjunction with other tests and in correlation with clinical picture. Performed By: #### BOSTON Dumont MA B12 #### [place] [address] [place] [address] MPA Result No M protein is identified. Normal No M protein is identified. [facility] Comment on above: Performed By: #### BOSTON Dumont MA B12 #### [place] [address] [place] [address] MPA Serum IgA 112 mg/dL Normal 70-[address] [facility] Comment on above: Performed By: #### BOSTON Dumont MA B12 #### [place] [address] [place] [address] MPA Serum IgG 517 mg/dL Low 700-[address] [facility] Comment on above: Performed By: #### BOSTON Dumont MA B12 #### [facility] [employer] [address] [place] [address] MPA Serum IgM 36 mg/dL Low 40-[address] [facility] Comment on above: Performed By: #### BOSTON Dumont MA, B12 #### [facility] [address] [place] [address] Staff Review Reviewed by Rachael Hidalgo MD ([id number]) Normal [facility] Comment on above: Performed By: #### BOSTON Dumont MA, B12 #### [facility] [address] [place] [address] Vitamin B12on 11-15-2021 Cobalamin (Vitamin B12) [Mass/Vol] 503 pg/mL Normal 232-[address] [facility] Comment on above: Performed By: #### BOSTON Dumont MA B12 #### [place] [address] [place] [address] FT4on 04-01-2019 T4 free mass conc 1.64 ng/dL Normal 0.78-2.44 [facility] Comment on above: Performed By: #### 4 500, 4520 #### [facility] Unless Otherwise Noted [address] [place] [address] / [facility] #4724/CLIA # [id number] TSHon 04-01-2019 Thyrotropin Qn 0.54 uIU/ml Normal 0.47-4.68 [facility] Comment on above: Performed By: #### 4 500, 4520 #### [facility] Unless Otherwise Noted [address] [address] / [facility] #4724/CLIA # [id number] Encounters Encounter Date Encounter Type Care Provider Facility Start: 06-26-2024 End: 06-26-2024 ambulatory LA LISSET Not Available Start: 06-25-2024 End: 06-25-2024 ambulatory TIFFANY PEREZ Not Available Start: 06-19-2024 End: 06-19-2024 ambulatory TFIFANY PEREZ Not Available Start: 06-18-2024 End: 06-18-2024 ambulatory ROSIE LYLE Not Available Start: 06-05-2024 End: 06-05-2024 ambulatory ARIELLE A SAMEERA Not Available Start: 06-05-2024 End: 06-05-2024 ambulatory ARIELLE A SAMEERA Not Available Start: 05-15-2024 End: 06-13-2024 ambulatory ARIELLE A SAMEERA [facility] Start: 05-08-2024 End: 05-08-2024 ambulatory TIFFANY PEREZ Not Available Start: 05-08-2024 End: 05-08-2024 ambulatory ARIELLE A SAMEEAR Not Available Start: 05-02-2024 End: 05-02-2024 ambulatory ARIELLE A SAMEERA Not Available Start: 05-01-2024 End: 05-13-2024 ambulatory ARIELLE A SAMEERA [facility] Start: 04-30-2024 End: 04-30-2024 ambulatory ARIELLE A SAMEERA Not Available Start: 04-30-2024 End: 04-30-2024 ambulatory ARIELLE A SAMEERA Not Available Start: 03-20-2024 End: 03-20-2024 ambulatory EDITA B WONDERLY Not Available Start: 01-11-2024 End: 01-11-2024 ambulatory DENYS PUMP Not Available Start: 12-28-2023 Telephone encounter Edita mari MD Work Phone: [facility] Start: 12-19-2023 End: 12-19-2023 ambulatory EDITA B WONDERLY Not Available Start: 10-24-2023 End: 10-24-2023 ambulatory ARIELLE A SAMEERA Not Available Start: 10-12-2023 End: 10-12-2023 ambulatory ARIELLE A SAMEERA Not Available Start: 09-25-2023 End: 09-25-2023 ambulatory ARIELLE A SAMEERA Not Available Start: 04-29-2021 End: 04-30-2021 ambulatory Truman Fanning Facility:[facility] Procedures Date Procedure Procedure Detail Performing Clinician Start: 10-12-2023 Mammography Edita pineda MD Work Phone: Start: 09-18-2023 Colonoscopy Edita pineda MD Work Phone: Plan of Treatment Date Care Activity Detail Author Start: 09-18-2033 Screening for malign ant neoplasm of colon [facility] Healthcare Start: 10-12-2024 Screening for malign ant neoplasm of breast Mammogram [facility] Start: 09-27-2024 End: 09-27-2024 Patient encounter procedure 09/27/2024 9:30 AM EST Office Visit [facility] [address] [place] [facility] [phone] Arielle Hatch NP [address] [place] [facility] [address] [facility] Start: 09-25-2024 Medicare Annual Well ness (AWV) Medicare Annual Wellness (AWV) [facility] Start: 03-20-2024 End: 03-20-2024 Patient encounter procedure 03/20/2024 10:30 AM EDT Office Visit [facility] [address] [place] [phone] Edita Aguilar MD [address] [place] [address] [facility] Start: 1950 Screening for malign ant neoplasm of colon [facility] Immunizations Immunization Date Immunization Notes Care Provider Fa cili 12-02-2023 RSV, recombinant, pr otein subunit RSVpreF, adjuvant reconstitu, 120mcg/0.5mL, PF (Arexvy) Edita Aguilar MD Work Phone: [facility] 08-23-2023 Influenza, High-dose Seasonal, Quadrivalent, Preservative Free Edita Aguilar MD Work Phone: [facility] 08-23-2023 SARS-COV-2 (COVID-19 ) vaccine, mRNA, spike protein, LNP, PF, 50 mcg/0.5 mL Edita Aguilar MD Work Phone: [facility] 08-15-2022 Influenza, High-dose Seasonal, Quadrivalent, Preservative Free Edita Aguilar MD Work Phone: [facility] 08-18-2021 Influenza, High-dose Seasonal, Quadrivalent, Preservative Free Edita Aguilar MD Work Phone: [facility] 10-03-2020 zoster vaccine recombinant Tim Aguilar MD Work Phone: [facility] 07-22-2020 Influenza, High-dose Seasonal, Quadrivalent, Preservative Free Edita Aguilar MD Work Phone: [facility] 07-22-2020 tetanus toxoid, redu miguel diphtheria toxoid, and acellular pertussis vaccine, adsorbed Edita Aguilar MD Work Phone: [facility] 07-22-2020 zoster vaccine recombinant Tim Aguilar MD Work Phone: [facility] 08-21-2019 influenza, high dose seasonal, preservative-free Edita Aguilar MD Work Phone: [facility] 09-08-2018 Influenza, injectabl e, Madin Sharmaine Canine Kidney, preservative free, quadrivalent Edita Aguilar MD Work Phone: [facility] 08-13-2018 influenza, high dose seasonal, preservative-free Edita Aguilar MD Work Phone: [facility] 09-13-2017 influenza, injectabl e, quadrivalent, preservative free Edita Aguilar MD Work Phone: [facility] 09-05-2016 influenza, high dose seasonal, preservative-free Edita Aguilar MD Work Phone: [facility] 01-06-2016 pneumococcal conjuga te vaccine, 13 valent Edita Aguilar MD Work Phone: [facility] 09-09-2015 influenza, high dose seasonal, preservative-free Edita Aguilar MD Work Phone: [facility] 03-12-2014 pneumococcal polysaccharide vaccine, 23 valent Edita Aguilar MD Work Phone: [facility] 10-13-2012 influenza, injectabl e, quadrivalent, preservative free Edita Aguilar MD Work Phone: [facility] 10-29-2009 novel influenza-H1N1 -09, preservative-free, injectable Edita Aguilar MD Work Phone: [facility] 05-19-2009 zoster vaccine, live Edita jones MD Work Phone: [facility] 01-02-2009 tetanus toxoid, redu miguel diphtheria toxoid, and acellular pertussis vaccine, adsorbed Edita Aguilar MD Work Phone: [facility] Payers Date Payer Category Payer Medicare AETNA MEDICARE A DVANTAGE AETNA MEDICARE REPLACEMENT [id number] 2022-Present [address] [place] [address] [id number] 2021 Private Health Insurance [id number] 2021 Self-pay [id number] 2014 Medicare [id number] 1950 Unknown [id number]. 128 1950 Unknown [id number] 2.840.1.833855.3.579.2. 128 1949 Unknown [id number] 2.840.1.830784.3.579.2. 1258 1949 Unknown [id number] 2.16840.1.490507.3.579.2. 1259 1949 Unknown [id number] 2.16840.1.040634.3.579.2. 125 1949 Unknown [id number] 2.16.840.1.506119.3.579.2. 1258 1949 Unknown [id number] 2.16.840.1.232166.3.579.2. 1258 1949 Unknown [id number] 2.16.840.1.043747.3.579.2. 1258 1949 Unknown [id number] 2.16.840.1.904590.3.579.2. 1258 1949 Unknown [id number] 2.16.840.1.579922.3.579.2. 1258 1949 Unknown [id number] 2.16.840.1.846081.3.579.2. 1258 1949 Unknown [id number] 2.16.840.1.614771.3.579.2. 1258 1949 Unknown [id number] 2.16.840.1.396013.3.579.2. 1258 1949 Unknown [id number] 2.16.840.1.232288.3.579.2. 1258 1949 Unknown [id number] 2.16.840.1.747797.3.579.2. 1258 1949 Unknown [id number] 2.16.840.1.791488.3.579.2. 1258 1949 Unknown [id number] 2.16.840.1.529933.3.579.2. 1258 1949 Unknown [id number] 2.16.840.1.117768.3.579.2. 1258 1949 Unknown [id number] 2.16.840.1.670950.3.579.2. 1258 1949 Unknown [id number] 2.16.840.1.597932.3.579.2. 1258 1949 Unknown [id number] 2.16.840.1.597447.3.579.2. 1258 Unknown [id number] 2.16.840.1.254016.3.579.2. 531 Social History Date Type Detail Facility Tobacco smoking stat us [facility] Unknown if ever smoked [facility] Work Phone: Start: 1950 Sex Assigned At Female [facility] Start: 07-19-2023 Tobacco smoking status NHIS Ex-smoker [facility] Start: 07-22-1967 End: 09-25-1993 History of tobacco use Current smoker [facility] Start: 07-22-1967 End: 09-25-1993 History of tobacco use Cigarette Smoker [facility] Start: 07-19-2023 End: 09-24-2023 Cigarettes smoked current (pack per day) - Reported 0.5 [facility] History of tobacco use Passive smoker [facility] Start: 07-19-2023 Tobacco use and exposure Smokeless tobacco non-user [facility] Start: 10-24-2023 Alcohol intake Current drinker of alcohol (finding) [facility] Start: 09-24-2023 End: 09-25-2023 Humiliation, Afraid, Rape, and Kick questionnaire [HARK] [facility] Within the last year , have you been afraid of your partner or ex-partner? No [facility] Do you belong to any clubs or organizations such as zoroastrianism groups, unions, fraternal or athletic groups, or school groups? Yes [facility] Are you now , , , , never or living with a partner? [facility] How often to you hav e a drink containing alcohol? 2-4 times a month [facility] How many standard dr inks containing alcohol do you have on a typical day? 1 or 2 [facility] How often do you hav e 6 or more drinks on 1 occasion? Never [facility] How hard is it for y ou to pay for the very basics like food, housing, medical care, and heating Not hard at all [facility] Do you feel stress - tense, restless, nervous, or anxious, or unable to sleep at night because your mind is troubled all the time - these days [OSQ] Not at all [facility] (I/We) worried wheaide er (my/our) food would run out before (I/we) got money to buy more. Never true [facility] Start: 07-19-2023 Alcohol Comment Alcohol: 1 or 2 drinks on a typical day / 2 to 4 times a month. Caffeine: 3-4 cups/day [facility] Start: 1950 Sex Assigned At Not on file [facility] Start: 01-25-2023 Gender identity Identifies as female gender (finding) [facility] Clinical Note 05-08-2024 Note Date & Type Note Facility 05-08-2024 Note PROCEDURE: Without IV contrast, axial helical 5 mm slice thickness images of the chest performed. FINDINGS: Comparison June 18, 2020 Stable right upper lobe partially calcified 8 mm nodule. No suspicious nodule, mass or consolidation. No significant midsternal or hilar lymphadenopathy. No pleural or pericardial effusion. Unremarkable upper abdominal images. IMPRESSION: Stable right upper lobe partially calcified 8 mm lung nodule/granuloma. TRANSCRIBED BY: ELECTRONICALLY SIGNED BY: Yuniel Ochoa MD Not Available Telephone encounter Note 12-28-2023 Telephone Encounter - Lupe Aguilar - 12/28/2023 10:07 AM EST Note Date & Type Note Facility 12-28-2023 Telephone encount er Note Patient left a voicemail and I called her back - she started on a new b/p medication- amlodipine on the . Last night her feet were swollen, this morning she noticed her hands and face are puffy. Her b/p last nite was 169/73 p.93 this morning 163/78. Please advise pt. [phone]. Please call her cell phone if it is after 11AM [phone]. Thank you. [facility] Note 12-28-2023 Telephone Encounter - Lupe Aguilar - 12/28/2023 10:07 AM EST Note Date & Type Note Facility 12-28-2023 Miscellaneous Notes Formattin g of this note might be different from the original. Patient left a voicemail and I called her back - she started on a new b/p medication- amlodipine on the . Last night her feet were swollen, this morning she noticed her hands and face are puffy. Her b/p last nite was 169/73 p.93 this morning 163/78. Please advise pt. [phone]. Please call her cell phone if it is after 11AM [phone]. Thank you. documented in this encounter [facility] Progress note 11-15-2021 Note Date & Type Note Facility 11-15-2021 Note HNO ID: [id number] Author: Krissy Caban MD Service: ? Author Type: Physician Type: Progress Notes Filed: 11/16/2021 8:11 AM Note Text: [facility] DATE: 11/15/2021 Reason for Evaluation: Consultation requested by Self for an opinion regarding her previous diagnosis of neuropathy. My final recommendations will be communicated back to the requesting physician by way of shared medical record or letter to requesting physician via US mail. HPI: Ms. 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 Previously evaluated here at [facility] in 03/2014 for concerns regarding peripheral neuropathy. Reported onset ~6 years prior (~2007). Numbness and tightness of the feet ascending to the ankles with ~2 years of stinging and burning pain worst at night. Exam at that time consistent with symmetric distal sensory polyneuropathy. Obtained multiple serum studies: SPEP with low lamin and elevated kappa/lambda ratio (3.12). Slightly elevated copper (170) and B6 (180). Normal/negative RF, UPEP, SMITHA, Vitamins B1/12. EMG in 03/2014 Overall unremarkable with exception being absent medial plantar response- read as normal study. QSART 05/2014 Reduced left proximal leg. Normal left forearm, distal leg, and foot. Skin biopsy 05/2014 Reduction in epidermal fiber densities at the distal thigh and distal leg consistent with a moderate to severe small fiber sensory neuropathy appearing length dependent. Management at that time was to increase her amitriptyline to 35 mg QHS. In the interim, she has been diagnosed with gout (at the end of 2018). In retrospect, realizes that she has had symptoms consistent with gout for several years preceding diagnosis. Has been on four different rounds of prednisone since September of 2021 due to gout attacks. With regards to her neuropathy: In 2013, symptoms were limited to essentially the mid and distal foot. Since that time, they have ascended to ~mid-calf bilaterally. Sometimes she feels tingling/pinpricks in the fingers of both hands- intermittent and usually at night. The pain in her feet has worsened. Described as hot /burning all the time with stabbing intermittently. Numbness has worsened, though she is not able to describe exactly how. Has not completely lost feeling- if anything they are frequently more sensitive. Her feet in general feel that they are stiff , and like they are hard to move to an extent. Recently had multiple labs (08/2021) drawn. A1c 6.2 Free T4 2.05, TSH 2.370 Vitamin D 66 She has noticed that her activity is decreasing (I.e. walking the neighborhood) as she knows she will pay for it later that night. Current medications being tried for the patient's symptoms include: - Amitriptyline 35 mg QHS Neurologic ROS Muscle bulk loss? No Muscle pain? No Cramps/Twitching? A lot of cramps in her legs at night. Suggestion of myotonia/difficulty relaxing after contraction? No Fatigable weakness? No Does strength improve after brief exercise? Yes Able to brush hair/teeth without difficulty? No Able to button shirts/use zips? No Clumsiness/dropping grasped objects? No Can you arise from squatted position easily? No, needs something to use as an aid. Able to get out of chair without using arms? Yes Able to walk up steps easily? Yes Use an assistive device to walk? No Significant imbalance with walking? Yes, generally feels off balance. Needs to lean against the pew in front of her if she closes her eyes praying at zoroastrianism. Falls? None Any change in urine color, especially after exertion/physical activity? No The patient denies symptoms suggestive of oculobulbar weakness including diplopia, dysphagia, poor saliva control, dysarthria/dysphonia, impaired mastication, facial weakness/droop. There are no neuromuscular respiratory weakness symptoms, particularly orthopnea>dyspnea. Pseudobulbar affect is absent. The patient does not report symptoms referable to autonomic dysfunction including impaired sweating, excessive mucosal dryness, gastroparetic early satiety, postprandial abdominal bloating, constipation, bowel or bladder dyscontrol, or syncope/presyncope/orthostatic intolerance. The patient has not noticed any recent skin rashes nor does she report any constitutional symptoms like fever, night sweats, anorexia or unintentional weight loss. Previous Evaluation Previous labs, electrodiagnostics, and neuroimaging are summarized below: See HP (more content not included)... [facility] Evaluation note Note Date & Type Note Facility Evaluation note [facility] Summary Purpose Family History No Family History Records Found Relationship Condition Age at Onset Recorded Date/T paula father Cerebrovascular accident (CVA) Unknown Heart disease Unknown Not Specified Malignant neoplasm of lung Unknown sister Malignant neoplasm of breast Unknown grandparent Malignant neoplasm of breast Unknown family member Mantle cell lymphoma Unknown Advance Directives No Advanced Directives Records FoundDocuments on File Type Date Recorded Patient Product Distribution Specialist Expl anation Advance Directives and Living Will 06/13/2019 2007-07-30 Miguelito trinidad Additional Source Comments INFORMATION SOURCE (unrecogn ized section and content) DATE CREATED AUTHOR 04/09/2019 [facility] DATE CREATED AUTHOR AUTHOR'S ORGANIZ ATION 02/03/[address] [facility] DATE CREATED AUTHOR AUTHOR'S ORGANIZ ATION 09/30/2022 [facility] dical Specialist DATE CREATED AUTHOR AUTHOR'S ORGANIZ ATION 03/26/2023 [facility] DATE CREATED AUTHOR AUTHOR'S ORGANIZ ATION 07/15/2023 [facility] DATE CREATED AUTHOR AUTHOR'S ORGANIZ ATION 03/15/2024 [facility] DATE CREATED AUTHOR AUTHOR'S ORGANIZ ATION 06/15/2024 [facility] DATE CREATED AUTHOR AUTHOR'S ORGANIZ ATION 06/30/2024 [facility] dical Specialists EPIC Goals (unrecognized section and content) Goals may be documented in a n alternate section Care Teams (unrecognized sec tion and content) Psychiatric Nurse Practitioner Relationship Specialty Start Date End Date Ayoly, Edita Kay MD [address] [place] [address] PCP - General Family Medicine 03/21/23 Edita Aguilar MD [address] [place] [address] PCP - [facility] 05/13/23 FOR RECORDS PERTAINING TO PATIENTS WHO ARE OR HAVE BEEN ENROLLED IN A CHEMICAL DEPENDENCY/SUBSTANCEABUSE PROGRAM, SOME INFORMATION MAY BE OMITTED. This clinical summary was aggregated from multiple sources. Caution should be exercised in using it in the provision of clinical care. This summary normalizes information from multiple sources, and as a consequence, information in this document may materially change the coding, format and clinical context of patient data. In addition, data may be omitted in some cases. CLINICAL DECISIONS SHOULD BE BASED ON THE PRIMARY CLINICAL RECORDS. [facility] [employer] [facility]. provides no warranty or guarantee of the accuracy or completeness of information in this document.
[2024-07-05] MEDS: LACTATED RINGER'S SOLUTION 1,000 ML 50 ML IV (08:31)
--- NOTE | 2024-07-05 10:21 | PM.ONB ---
Brief Operative Note Date of procedure: 07/05/24 Pre-op diagnosis general: thickend endometrium Post-op diagnosis: same as pre-op Procedure: NAME OF PROCEDURE: [ D&c hysteroscopy with myosure] PROCEDURE: The patient was taken back to the Operating Room where she was prepped and draped in normal sterile fashion after being placed under general anesthesia without difficulty. She was also placed in the dorsal lithotomy position. A weighted speculum was placed in the patient?s vagina. The anterior lip of the cervix was identified and grasped with a single tooth tenaculum. The patient?s uterus was then sounded roughly to [? 8] cm. The patient was then gently dilated using Hegar dilators. The hysteroscope was passed through the patient?s cervix into the uterus. Both ostia were identified. fluffy appearing endometrium. No gross evidence of malignancy, no gross evidence of polyps or fibroids. The myosure apparatus was placed through the scope, The myosure was engaged and endometrial curretting were removed along with endometrial polyp, The hysteroscope was then removed from the uterus. The endometrial curettings were sent out to pathology. The single tooth tenaculum was then removed from the patient's anterior lip of the cervix where excellent hemostasis was noted. All instruments were removed from the patient?s vagina. The patient tolerated the procedure well. Sponge, lap and needle counts were correct times two. The patient was taken to the Recovery Room in stable condition.Room in stable condition. Anesthesia: MAC Surgeon: Johnny Padilla Estimated blood loss (mL): 5 Pathology: other (endometrial curretting, endometrial polyp) Condition: stable Disposition: PACU Urinary Catheter Management Urinary Catheter Management Straight: Cath placed during this visit: no
[2024-07-05 10:25] VITALS: BP 110/67; PULSE 78; TEMP 36.6; O2SAT 98
[2024-07-05 10:40] VITALS: BP 112/64; PULSE 68; O2SAT 100
[2024-07-05 10:55] VITALS: BP 110/62; PULSE 66; O2SAT 99
[2024-07-05 11:25] VITALS: BP 112/64; PULSE 70; O2SAT 100
--- NOTE | 2024-07-05 11:47 | PC.NURSE ---
1145: scant drainage noted to peripad.
[2024-07-05 11:56] VITALS: BP 124/68; PULSE 72; O2SAT 100
--- NOTE | 2024-07-05 11:57 | PC.NURSE ---
1156: pt voids without difficulty. ambulates with minimal assistance.
== END 2024-07-05 11:58 | disposition home or self-care (01) ==
PROVIDERS: PCP Family Medicine; Visit Provider Obstetrics & Gynecology
PROC: (CPT 58558; principal; 2024-07-05 09:10)
DX: R93.89 Abnormal findings on diagnostic imaging of other specified body structures (principal); N95.0 Postmenopausal bleeding; N84.0 Polyp of corpus uteri; Z87.891 Personal history of nicotine dependence; E78.5 Hyperlipidemia, unspecified; I10 Essential (primary) hypertension; K21.9 Gastro-esophageal reflux disease without esophagitis; E06.3 Autoimmune thyroiditis
CPT/HCPCS: 58558; 36415; 88305; J1100; J1885; J2250; J2704; J3010